=== PATIENT | female | born 1945 | race Caucasian/White ===

== ENCOUNTER 2017-05-20 08:47 | Outpatient (CLI) | payer OTHER ==
[~2017-05-20 08:47] MED LIST: ATENOLOL50 MG; COZAAR100 MG
== END 2017-05-20 08:56 | disposition home or self-care (01) ==
LOC: LAB 08:47
DX: E11.9 Type 2 diabetes mellitus without complications (principal); E78.2 Mixed hyperlipidemia; M81.0 Age-related osteoporosis without current pathological fracture; I10 Essential (primary) hypertension; E21.0 Primary hyperparathyroidism; E03.8 Other specified hypothyroidism; C34.12 Malignant neoplasm of upper lobe, left bronchus or lung; Z85.118 Personal history of other malignant neoplasm of bronchus and lung; C19 Malignant neoplasm of rectosigmoid junction; Z85.048 Personal history of other malignant neoplasm of rectum, rectosigmoid junction, and anus; D51.0 Vitamin B12 deficiency anemia due to intrinsic factor deficiency; D51.1 Vitamin B12 deficiency anemia due to selective vitamin B12 malabsorption with proteinuria; D51.3 Other dietary vitamin B12 deficiency anemia; D50.8 Other iron deficiency anemias; D51.8 Other vitamin B12 deficiency anemias; R97.0 Elevated carcinoembryonic antigen [CEA]

== ENCOUNTER 2017-07-08 08:46 | Outpatient (CLI) | payer OTHER | END 2017-07-08 08:53 | disposition home or self-care (01) | LOC: TOM 08:46 | DX: C34.12 Malignant neoplasm of upper lobe, left bronchus or lung (principal); Z85.118 Personal history of other malignant neoplasm of bronchus and lung; C19 Malignant neoplasm of rectosigmoid junction; Z85.048 Personal history of other malignant neoplasm of rectum, rectosigmoid junction, and anus; D51.0 Vitamin B12 deficiency anemia due to intrinsic factor deficiency; D51.1 Vitamin B12 deficiency anemia due to selective vitamin B12 malabsorption with proteinuria; D51.3 Other dietary vitamin B12 deficiency anemia; E03.8 Other specified hypothyroidism; I10 Essential (primary) hypertension | CPT/HCPCS: 71260; 74177; Q9965 ==

== ENCOUNTER 2017-07-13 08:43 | Outpatient (CLI) | payer OTHER | END 2017-07-13 08:53 | disposition home or self-care (01) | LOC: LAB 08:43 | DX: C34.12 Malignant neoplasm of upper lobe, left bronchus or lung (principal); Z85.118 Personal history of other malignant neoplasm of bronchus and lung; C19 Malignant neoplasm of rectosigmoid junction; Z85.048 Personal history of other malignant neoplasm of rectum, rectosigmoid junction, and anus; D51.0 Vitamin B12 deficiency anemia due to intrinsic factor deficiency; D51.1 Vitamin B12 deficiency anemia due to selective vitamin B12 malabsorption with proteinuria; D51.3 Other dietary vitamin B12 deficiency anemia; E03.8 Other specified hypothyroidism; D50.8 Other iron deficiency anemias; D51.8 Other vitamin B12 deficiency anemias; I10 Essential (primary) hypertension; R97.0 Elevated carcinoembryonic antigen [CEA]; E83.52 Hypercalcemia; E21.0 Primary hyperparathyroidism ==

== ENCOUNTER 2017-07-15 08:49 | Outpatient (CLI) | payer OTHER | END 2017-07-15 08:55 | disposition home or self-care (01) | LOC: MAMO-SONO 08:49 | DX: Z12.31 Encounter for screening mammogram for malignant neoplasm of breast (principal); Z87.898 Personal history of other specified conditions; N64.89 Other specified disorders of breast; C34.12 Malignant neoplasm of upper lobe, left bronchus or lung; Z85.118 Personal history of other malignant neoplasm of bronchus and lung; C19 Malignant neoplasm of rectosigmoid junction; Z85.048 Personal history of other malignant neoplasm of rectum, rectosigmoid junction, and anus; D51.0 Vitamin B12 deficiency anemia due to intrinsic factor deficiency; D51.1 Vitamin B12 deficiency anemia due to selective vitamin B12 malabsorption with proteinuria; D51.3 Other dietary vitamin B12 deficiency anemia; E03.8 Other specified hypothyroidism; I10 Essential (primary) hypertension ==

== ENCOUNTER 2017-10-14 14:14 | Outpatient (CLI) | payer OTHER | END 2017-10-14 14:30 | disposition home or self-care (01) | LOC: NUCLEAR 14:14 | DX: C34.12 Malignant neoplasm of upper lobe, left bronchus or lung (principal); Z85.118 Personal history of other malignant neoplasm of bronchus and lung; C19 Malignant neoplasm of rectosigmoid junction; Z85.048 Personal history of other malignant neoplasm of rectum, rectosigmoid junction, and anus; D51.0 Vitamin B12 deficiency anemia due to intrinsic factor deficiency; D51.1 Vitamin B12 deficiency anemia due to selective vitamin B12 malabsorption with proteinuria; E03.8 Other specified hypothyroidism; I10 Essential (primary) hypertension; E21.0 Primary hyperparathyroidism | CPT/HCPCS: 78072; A9500 ==

== ENCOUNTER 2017-10-22 08:10 | Outpatient (CLI) | payer OTHER | END 2017-10-22 08:21 | disposition home or self-care (01) | LOC: LAB 08:10 | DX: C34.12 Malignant neoplasm of upper lobe, left bronchus or lung (principal); Z85.118 Personal history of other malignant neoplasm of bronchus and lung; C19 Malignant neoplasm of rectosigmoid junction; Z85.048 Personal history of other malignant neoplasm of rectum, rectosigmoid junction, and anus; D51.0 Vitamin B12 deficiency anemia due to intrinsic factor deficiency; D51.1 Vitamin B12 deficiency anemia due to selective vitamin B12 malabsorption with proteinuria; D51.3 Other dietary vitamin B12 deficiency anemia; E03.8 Other specified hypothyroidism; I10 Essential (primary) hypertension; E21.0 Primary hyperparathyroidism; D50.8 Other iron deficiency anemias; D51.8 Other vitamin B12 deficiency anemias; R97.0 Elevated carcinoembryonic antigen [CEA] ==

== ENCOUNTER → 2018-02-23 09:44 | Outpatient (CLI) | payer OTHER | END | disposition home or self-care (01) | LOC: LAB 09:44 | DX: C34.12 Malignant neoplasm of upper lobe, left bronchus or lung (principal); Z85.118 Personal history of other malignant neoplasm of bronchus and lung; C19 Malignant neoplasm of rectosigmoid junction; Z85.048 Personal history of other malignant neoplasm of rectum, rectosigmoid junction, and anus; D51.0 Vitamin B12 deficiency anemia due to intrinsic factor deficiency; D51.1 Vitamin B12 deficiency anemia due to selective vitamin B12 malabsorption with proteinuria; E03.8 Other specified hypothyroidism; I10 Essential (primary) hypertension; E21.0 Primary hyperparathyroidism; D50.8 Other iron deficiency anemias; E78.2 Mixed hyperlipidemia; R97.0 Elevated carcinoembryonic antigen [CEA]; R97.8 Other abnormal tumor markers ==

== ENCOUNTER 2018-07-20 09:09 | Outpatient (CLI) | payer OTHER | END 2018-07-20 09:15 | disposition home or self-care (01) | LOC: MAMO-SONO 09:09 | DX: Z12.31 Encounter for screening mammogram for malignant neoplasm of breast (principal); Z87.898 Personal history of other specified conditions; N63.10 Unspecified lump in the right breast, unspecified quadrant; N63.20 Unspecified lump in the left breast, unspecified quadrant; C34.12 Malignant neoplasm of upper lobe, left bronchus or lung; C19 Malignant neoplasm of rectosigmoid junction; Z85.118 Personal history of other malignant neoplasm of bronchus and lung; Z85.048 Personal history of other malignant neoplasm of rectum, rectosigmoid junction, and anus; D51.0 Vitamin B12 deficiency anemia due to intrinsic factor deficiency; D51.1 Vitamin B12 deficiency anemia due to selective vitamin B12 malabsorption with proteinuria; D51.3 Other dietary vitamin B12 deficiency anemia; E03.8 Other specified hypothyroidism; I10 Essential (primary) hypertension; E21.0 Primary hyperparathyroidism ==

== ENCOUNTER 2018-07-20 10:13 | Outpatient (CLI) | payer OTHER | END 2018-07-20 10:24 | disposition home or self-care (01) | LOC: NUCLEAR 10:13 | DX: M81.0 Age-related osteoporosis without current pathological fracture (principal) ==

== ENCOUNTER 2018-07-21 07:30 | Outpatient (CLI) | payer OTHER | END 2018-07-21 07:52 | disposition home or self-care (01) | LOC: LAB 07:30 | DX: C34.12 Malignant neoplasm of upper lobe, left bronchus or lung (principal); Z85.118 Personal history of other malignant neoplasm of bronchus and lung; C19 Malignant neoplasm of rectosigmoid junction; Z85.048 Personal history of other malignant neoplasm of rectum, rectosigmoid junction, and anus; D51.0 Vitamin B12 deficiency anemia due to intrinsic factor deficiency; D51.1 Vitamin B12 deficiency anemia due to selective vitamin B12 malabsorption with proteinuria; D51.3 Other dietary vitamin B12 deficiency anemia; E03.8 Other specified hypothyroidism; I10 Essential (primary) hypertension; E21.0 Primary hyperparathyroidism; D50.8 Other iron deficiency anemias; D51.8 Other vitamin B12 deficiency anemias; K90.89 Other intestinal malabsorption; E78.2 Mixed hyperlipidemia; R97.0 Elevated carcinoembryonic antigen [CEA]; R19.5 Other fecal abnormalities ==

== ENCOUNTER 2018-08-11 08:20 | Outpatient (CLI) | payer OTHER | END 2018-08-11 08:30 | disposition home or self-care (01) | LOC: TOM 08:20 | DX: C34.12 Malignant neoplasm of upper lobe, left bronchus or lung (principal); Z85.118 Personal history of other malignant neoplasm of bronchus and lung; C19 Malignant neoplasm of rectosigmoid junction; Z85.048 Personal history of other malignant neoplasm of rectum, rectosigmoid junction, and anus; D51.0 Vitamin B12 deficiency anemia due to intrinsic factor deficiency; D51.1 Vitamin B12 deficiency anemia due to selective vitamin B12 malabsorption with proteinuria; D51.3 Other dietary vitamin B12 deficiency anemia; E03.8 Other specified hypothyroidism; I10 Essential (primary) hypertension; E21.0 Primary hyperparathyroidism ==

== ENCOUNTER 2018-12-08 08:41 | Outpatient (CLI) | payer OTHER | END 2018-12-08 08:49 | disposition home or self-care (01) | LOC: LAB 08:41 | DX: E03.8 Other specified hypothyroidism (principal); I10 Essential (primary) hypertension; E21.0 Primary hyperparathyroidism; C34.12 Malignant neoplasm of upper lobe, left bronchus or lung; Z85.118 Personal history of other malignant neoplasm of bronchus and lung; C19 Malignant neoplasm of rectosigmoid junction; Z85.048 Personal history of other malignant neoplasm of rectum, rectosigmoid junction, and anus; D51.0 Vitamin B12 deficiency anemia due to intrinsic factor deficiency; D51.1 Vitamin B12 deficiency anemia due to selective vitamin B12 malabsorption with proteinuria; D51.3 Other dietary vitamin B12 deficiency anemia ==

== ENCOUNTER → 2019-05-05 09:04 | Outpatient (CLI) | payer OTHER | END | disposition home or self-care (01) | LOC: LAB 09:04 | DX: C34.12 Malignant neoplasm of upper lobe, left bronchus or lung (principal); Z85.118 Personal history of other malignant neoplasm of bronchus and lung; C19 Malignant neoplasm of rectosigmoid junction; Z85.048 Personal history of other malignant neoplasm of rectum, rectosigmoid junction, and anus; D51.0 Vitamin B12 deficiency anemia due to intrinsic factor deficiency; D51.1 Vitamin B12 deficiency anemia due to selective vitamin B12 malabsorption with proteinuria; D51.3 Other dietary vitamin B12 deficiency anemia; E03.8 Other specified hypothyroidism; I10 Essential (primary) hypertension; E21.0 Primary hyperparathyroidism; E55.9 Vitamin D deficiency, unspecified; D50.0 Iron deficiency anemia secondary to blood loss (chronic); R97.0 Elevated carcinoembryonic antigen [CEA] ==

== ENCOUNTER 2020-01-18 08:46 | Outpatient (CLI) | payer OTHER | END 2020-01-18 08:51 | disposition home or self-care (01) | LOC: LAB 08:46 | PROVIDERS: ATTEND Internal Medicine Hematology & Oncology | DX: D50.8 Other iron deficiency anemias (principal); I10 Essential (primary) hypertension; D51.8 Other vitamin B12 deficiency anemias; E03.8 Other specified hypothyroidism; R97.0 Elevated carcinoembryonic antigen [CEA]; C34.12 Malignant neoplasm of upper lobe, left bronchus or lung; Z85.118 Personal history of other malignant neoplasm of bronchus and lung; C19 Malignant neoplasm of rectosigmoid junction; Z85.048 Personal history of other malignant neoplasm of rectum, rectosigmoid junction, and anus; D51.0 Vitamin B12 deficiency anemia due to intrinsic factor deficiency; D51.1 Vitamin B12 deficiency anemia due to selective vitamin B12 malabsorption with proteinuria; D51.3 Other dietary vitamin B12 deficiency anemia; E21.0 Primary hyperparathyroidism ==

== ENCOUNTER 2020-01-26 08:06 | Outpatient (CLI) | payer OTHER | END 2020-01-26 08:24 | disposition home or self-care (01) | LOC: RAD 08:06 | PROVIDERS: ATTEND Internal Medicine Hematology & Oncology | DX: C34.12 Malignant neoplasm of upper lobe, left bronchus or lung (principal); Z85.118 Personal history of other malignant neoplasm of bronchus and lung; C19 Malignant neoplasm of rectosigmoid junction; Z85.048 Personal history of other malignant neoplasm of rectum, rectosigmoid junction, and anus; D51.0 Vitamin B12 deficiency anemia due to intrinsic factor deficiency; D51.1 Vitamin B12 deficiency anemia due to selective vitamin B12 malabsorption with proteinuria; D51.3 Other dietary vitamin B12 deficiency anemia; E03.8 Other specified hypothyroidism; I10 Essential (primary) hypertension; E21.0 Primary hyperparathyroidism; N64.59 Other signs and symptoms in breast; Z12.31 Encounter for screening mammogram for malignant neoplasm of breast | CPT/HCPCS: 71260; 74177; 76641; 77067; Q9965 ==

== ENCOUNTER → 2020-09-24 08:13 | Outpatient (CLI) | payer OTHER | END | disposition home or self-care (01) | LOC: LAB 08:13 | PROVIDERS: ATTEND Internal Medicine Hematology & Oncology | DX: D50.8 Other iron deficiency anemias (principal); I10 Essential (primary) hypertension; R74.02 Elevation of levels of lactic acid dehydrogenase [LDH]; K76.89 Other specified diseases of liver; D51.8 Other vitamin B12 deficiency anemias; E55.9 Vitamin D deficiency, unspecified; E03.8 Other specified hypothyroidism; R97.0 Elevated carcinoembryonic antigen [CEA]; R97.8 Other abnormal tumor markers; C34.12 Malignant neoplasm of upper lobe, left bronchus or lung; Z85.118 Personal history of other malignant neoplasm of bronchus and lung; C19 Malignant neoplasm of rectosigmoid junction; Z85.048 Personal history of other malignant neoplasm of rectum, rectosigmoid junction, and anus; D51.0 Vitamin B12 deficiency anemia due to intrinsic factor deficiency; D51.1 Vitamin B12 deficiency anemia due to selective vitamin B12 malabsorption with proteinuria; D51.3 Other dietary vitamin B12 deficiency anemia; E21.0 Primary hyperparathyroidism ==

== ENCOUNTER → 2021-02-11 08:46 | Outpatient (CLI) | payer OTHER | END | disposition home or self-care (01) | LOC: LAB 08:46 | PROVIDERS: ATTEND Internal Medicine Hematology & Oncology | DX: D50.8 Other iron deficiency anemias (principal); I10 Essential (primary) hypertension; R74.02 Elevation of levels of lactic acid dehydrogenase [LDH]; K76.89 Other specified diseases of liver; D51.8 Other vitamin B12 deficiency anemias; E55.9 Vitamin D deficiency, unspecified; E03.8 Other specified hypothyroidism; R97.0 Elevated carcinoembryonic antigen [CEA]; R97.8 Other abnormal tumor markers; C34.12 Malignant neoplasm of upper lobe, left bronchus or lung; Z85.118 Personal history of other malignant neoplasm of bronchus and lung; C19 Malignant neoplasm of rectosigmoid junction; Z85.048 Personal history of other malignant neoplasm of rectum, rectosigmoid junction, and anus; D51.0 Vitamin B12 deficiency anemia due to intrinsic factor deficiency; D51.1 Vitamin B12 deficiency anemia due to selective vitamin B12 malabsorption with proteinuria; D51.3 Other dietary vitamin B12 deficiency anemia; E21.0 Primary hyperparathyroidism; E78.2 Mixed hyperlipidemia; K62.5 Hemorrhage of anus and rectum; N39.0 Urinary tract infection, site not specified ==

== ENCOUNTER → 2021-02-11 | Outpatient (CLI) | payer OTHER | END | disposition home or self-care (01) | LOC: MAMO-SONO 09:15 | PROVIDERS: ATTEND Family Medicine Adult Medicine | DX: R92.1 Mammographic calcification found on diagnostic imaging of breast (principal); Z12.31 Encounter for screening mammogram for malignant neoplasm of breast; Z80.8 Family history of malignant neoplasm of other organs or systems ==

== ENCOUNTER 2021-07-15 08:35 | Outpatient (CLI) | payer OTHER | END 2021-07-15 14:50 | disposition home or self-care (01) | LOC: LAB 08:35 | PROVIDERS: ATTEND Internal Medicine Hematology & Oncology | DX: D50.8 Other iron deficiency anemias (principal); I10 Essential (primary) hypertension; R74.02 Elevation of levels of lactic acid dehydrogenase [LDH]; K76.89 Other specified diseases of liver; E78.2 Mixed hyperlipidemia; E03.8 Other specified hypothyroidism; R97.0 Elevated carcinoembryonic antigen [CEA]; R97.8 Other abnormal tumor markers; C34.12 Malignant neoplasm of upper lobe, left bronchus or lung; Z85.118 Personal history of other malignant neoplasm of bronchus and lung; C19 Malignant neoplasm of rectosigmoid junction; D52.0 Dietary folate deficiency anemia; D51.1 Vitamin B12 deficiency anemia due to selective vitamin B12 malabsorption with proteinuria; D51.3 Other dietary vitamin B12 deficiency anemia; E21.0 Primary hyperparathyroidism; Z85.048 Personal history of other malignant neoplasm of rectum, rectosigmoid junction, and anus ==

== ENCOUNTER 2021-08-06 10:45 | Outpatient (CLI) | payer OTHER | END 2021-08-06 10:47 | disposition home or self-care (01) | LOC: SONOGRAMA 10:45 | PROVIDERS: ATTEND Internal Medicine Hematology & Oncology | DX: Z85.118 Personal history of other malignant neoplasm of bronchus and lung (principal); Z85.048 Personal history of other malignant neoplasm of rectum, rectosigmoid junction, and anus; C34.12 Malignant neoplasm of upper lobe, left bronchus or lung; C19 Malignant neoplasm of rectosigmoid junction; D51.0 Vitamin B12 deficiency anemia due to intrinsic factor deficiency; D51.1 Vitamin B12 deficiency anemia due to selective vitamin B12 malabsorption with proteinuria; D51.3 Other dietary vitamin B12 deficiency anemia; E03.8 Other specified hypothyroidism; I10 Essential (primary) hypertension; E21.0 Primary hyperparathyroidism ==

== ENCOUNTER 2022-01-16 08:31 | Outpatient (CLI) | payer OTHER | END 2022-01-16 08:32 | disposition home or self-care (01) | LOC: LAB 08:31 | PROVIDERS: ATTEND Internal Medicine Hematology & Oncology | DX: C34.12 Malignant neoplasm of upper lobe, left bronchus or lung (principal); C19 Malignant neoplasm of rectosigmoid junction; D50.8 Other iron deficiency anemias; I10 Essential (primary) hypertension; R74.02 Elevation of levels of lactic acid dehydrogenase [LDH]; K76.89 Other specified diseases of liver; E55.9 Vitamin D deficiency, unspecified; E78.2 Mixed hyperlipidemia; E03.8 Other specified hypothyroidism; R97.0 Elevated carcinoembryonic antigen [CEA]; R97.8 Other abnormal tumor markers; D51.0 Vitamin B12 deficiency anemia due to intrinsic factor deficiency; D51.1 Vitamin B12 deficiency anemia due to selective vitamin B12 malabsorption with proteinuria; D51.3 Other dietary vitamin B12 deficiency anemia; E21.0 Primary hyperparathyroidism; Z85.118 Personal history of other malignant neoplasm of bronchus and lung ==

== ENCOUNTER 2022-07-07 08:27 | Outpatient (CLI) | payer OTHER | END 2022-07-07 15:50 | disposition home or self-care (01) | LOC: LAB 08:27 | PROVIDERS: ATTEND Internal Medicine Hematology & Oncology | DX: E78.2 Mixed hyperlipidemia (principal); I11.9 Hypertensive heart disease without heart failure; R73.01 Impaired fasting glucose; E03.8 Other specified hypothyroidism; E21.0 Primary hyperparathyroidism; E55.9 Vitamin D deficiency, unspecified; I12.9 Hypertensive chronic kidney disease with stage 1 through stage 4 chronic kidney disease, or unspecified chronic kidney disease; D50.8 Other iron deficiency anemias; R74.02 Elevation of levels of lactic acid dehydrogenase [LDH]; K76.89 Other specified diseases of liver; C50.919 Malignant neoplasm of unspecified site of unspecified female breast; R97.8 Other abnormal tumor markers; R97.0 Elevated carcinoembryonic antigen [CEA]; C34.12 Malignant neoplasm of upper lobe, left bronchus or lung; Z85.118 Personal history of other malignant neoplasm of bronchus and lung; D51.1 Vitamin B12 deficiency anemia due to selective vitamin B12 malabsorption with proteinuria; D51.3 Other dietary vitamin B12 deficiency anemia; G47.00 Insomnia, unspecified; F51.09 Other insomnia not due to a substance or known physiological condition ==

== ENCOUNTER 2022-07-07 10:04 | Outpatient (CLI) | payer OTHER | END 2022-07-07 10:07 | disposition home or self-care (01) | LOC: MAMO-SONO 10:04 | PROVIDERS: ATTEND Internal Medicine Hematology & Oncology | DX: Z12.31 Encounter for screening mammogram for malignant neoplasm of breast (principal); N63.0 Unspecified lump in unspecified breast; N64.4 Mastodynia; C34.12 Malignant neoplasm of upper lobe, left bronchus or lung; Z85.118 Personal history of other malignant neoplasm of bronchus and lung; C19 Malignant neoplasm of rectosigmoid junction; Z85.048 Personal history of other malignant neoplasm of rectum, rectosigmoid junction, and anus; D51.0 Vitamin B12 deficiency anemia due to intrinsic factor deficiency; D51.1 Vitamin B12 deficiency anemia due to selective vitamin B12 malabsorption with proteinuria; D51.3 Other dietary vitamin B12 deficiency anemia; E03.8 Other specified hypothyroidism; I10 Essential (primary) hypertension; E21.0 Primary hyperparathyroidism; G47.00 Insomnia, unspecified; F51.09 Other insomnia not due to a substance or known physiological condition ==

== ENCOUNTER 2022-07-24 12:19 | Outpatient (CLI) | payer OTHER | END 2022-07-24 12:21 | disposition home or self-care (01) | LOC: NUCLEAR 12:19 | PROVIDERS: ATTEND Family Medicine Adult Medicine | DX: M81.0 Age-related osteoporosis without current pathological fracture (principal) ==

== ENCOUNTER 2022-07-30 10:26 | Outpatient (CLI) | payer OTHER | END 2022-07-30 13:25 | disposition home or self-care (01) | LOC: LAB 10:26 | DX: E03.8 Other specified hypothyroidism (principal) ==

== ENCOUNTER 2022-08-19 07:55 | Emergency (ER) | payer OTHER ==
[~2022-08-19] VITALS: Ht 152.4 cm; Wt 58.1 kg
[2022-08-19] MEDS ORDERED: LIPITOR20 MG PO (08:23)
[2022-08-19] MEDS ORDERED: AMBIEN10 MG PO (08:23)
[2022-08-19] MEDS ORDERED: LEVOTHYROXINE25 MC2 PO (08:24)
== END 2022-08-19 12:32 | disposition home or self-care (01) ==
LOC: ER 07:55
DX: M54.50 Low back pain, unspecified (principal); Z85.89 Personal history of malignant neoplasm of other organs and systems; I10 Essential (primary) hypertension; E03.9 Hypothyroidism, unspecified; Z88.0 Allergy status to penicillin; Z88.2 Allergy status to sulfonamides; K59.00 Constipation, unspecified

== ENCOUNTER 2023-02-13 08:01 | Outpatient (CLI) | payer OTHER ==
[~2023-02-13 08:01] MED LIST changes: +AMBIEN10 MG PO; +LEVOTHYROXINE25 MC2 PO; +LIPITOR20 MG PO
[2023-02-13 10:20] LABS: HEMATOCRIT 33.2 % (36.0-45.00); HEMOGLOBIN 11.2 g/dL (12.0-15.00); MEAN CELL VOLUME 88.6 fL (80.00-100.00); MEAN CORPUSCULAR HEMOGLOBIN 29.9 pg (27.00-32.0); MEAN CORPUSCULAR HGB CONC 33.8 g/dl (32.0-36.0); PLATELET COUNT 252 K/uL (150-450); RED BLOOD COUNT 3.74 M/uL (4.00-6.00); RED CELL DISTRIBUTION WIDTH 14.3 % (11.5-14.5)
[2023-02-13 11:19] LABS: ALBUMIN 3.4 gm/dL (3.4-5.0); BILIRUBIN TOTAL 0.61 mg/dL (0.3-1.2); CALCIUM 8.7 mg/dL (8.5-10.1); CREATININE SERUM 1.27 mg/dL (0.55-1.02); GFR 40.7; GLOBULINA 3.9 G/DL (2.4-3.5); POTASSIUM 4.61 mEq/L (3.5-5.1); TOTAL PROTEIN 7.3 gm/dL (6.4-8.2); TSH 4.4 uIU/mL (0.358-3.74)
== END 2023-02-13 08:33 | disposition home or self-care (01) ==
LOC: LAB 08:01
DX: R73.01 Impaired fasting glucose (principal); E78.2 Mixed hyperlipidemia; K62.5 Hemorrhage of anus and rectum; E03.9 Hypothyroidism, unspecified; E55.9 Vitamin D deficiency, unspecified; E21.0 Primary hyperparathyroidism; Z88.0 Allergy status to penicillin; Z88.1 Allergy status to other antibiotic agents

== ENCOUNTER 2023-02-26 11:11 | Outpatient (CLI) | payer OTHER ==
[2023-02-26 12:32] LABS: ob NEGATIVE (NEGATIVE)
== END 2023-02-26 11:12 | disposition home or self-care (01) ==
LOC: EDBD 11:11 → LAB 11:11
DX: K62.5 Hemorrhage of anus and rectum (principal)

== ENCOUNTER → 2023-07-01 07:15 | Outpatient (CLI) | payer OTHER | END | disposition home or self-care (01) | LOC: NUCLEAR 07:00 | PROVIDERS: ATTEND Internal Medicine Hematology & Oncology | DX: D35.1 Benign neoplasm of parathyroid gland (principal); E21.0 Primary hyperparathyroidism; C34.12 Malignant neoplasm of upper lobe, left bronchus or lung; Z85.118 Personal history of other malignant neoplasm of bronchus and lung; C19 Malignant neoplasm of rectosigmoid junction; Z85.048 Personal history of other malignant neoplasm of rectum, rectosigmoid junction, and anus; D51.0 Vitamin B12 deficiency anemia due to intrinsic factor deficiency; D51.1 Vitamin B12 deficiency anemia due to selective vitamin B12 malabsorption with proteinuria; D51.3 Other dietary vitamin B12 deficiency anemia; E03.8 Other specified hypothyroidism; I10 Essential (primary) hypertension | CPT/HCPCS: 78072; A9500 ==

== ENCOUNTER 2023-07-21 08:57 | Outpatient (CLI) | payer OTHER ==
[2023-07-21 10:28] LABS: HEMATOCRIT 35.7 % (36.0-45.00); HEMOGLOBIN 12.1 g/dL (12.0-15.00); MEAN CELL VOLUME 88.7 fL (80.00-100.00); MEAN CORPUSCULAR HEMOGLOBIN 30.1 pg (27.00-32.0); PLATELET COUNT 272 K/uL (150-450); RED BLOOD COUNT 4.03 M/uL (4.00-6.00)
[2023-07-21 11:30] LABS: ALBUMIN 3.5 gm/dL (3.4-5.0); BILIRUBIN TOTAL 0.72 mg/dL (0.3-1.2); CALCIUM 9.3 mg/dL (8.5-10.1); CREATININE SERUM 1.19 mg/dL (0.55-1.02); GFR 43.76; POTASSIUM 4.5 mEq/L (3.5-5.1); T4 FREE 1.36 NG/ML (0.76-1.46); TOTAL PROTEIN 7.5 gm/dL (6.4-8.2); TSH 1.9 uIU/mL (0.358-3.74)
[2023-07-21 12:36] LABS: FOLIC ACID 19.22 ng/ml (4.78-20); VITAMIN D3 25 HYDROXY 49.55 ng/ml (30-120)
== END 2023-07-21 09:04 | disposition home or self-care (01) ==
LOC: LAB 08:57
PROVIDERS: ATTEND Internal Medicine Hematology & Oncology
DX: D50.8 Other iron deficiency anemias (principal); I10 Essential (primary) hypertension; R74.02 Elevation of levels of lactic acid dehydrogenase [LDH]; K76.89 Other specified diseases of liver; E55.9 Vitamin D deficiency, unspecified; C50.919 Malignant neoplasm of unspecified site of unspecified female breast; R97.8 Other abnormal tumor markers; E03.8 Other specified hypothyroidism; E21.0 Primary hyperparathyroidism; D53.1 Other megaloblastic anemias, not elsewhere classified; C34.12 Malignant neoplasm of upper lobe, left bronchus or lung; Z85.048 Personal history of other malignant neoplasm of rectum, rectosigmoid junction, and anus; D51.0 Vitamin B12 deficiency anemia due to intrinsic factor deficiency; D51.1 Vitamin B12 deficiency anemia due to selective vitamin B12 malabsorption with proteinuria; D51.3 Other dietary vitamin B12 deficiency anemia; G47.00 Insomnia, unspecified; F51.09 Other insomnia not due to a substance or known physiological condition

== ENCOUNTER → 2023-11-20 08:12 | Outpatient (CLI) | payer OTHER ==
[2023-11-20 08:50] LABS: HEMATOCRIT 35.2 % (36.0-45.00); HEMOGLOBIN 11.9 g/dL (12.0-15.00); MEAN CELL VOLUME 89.8 fL (80.00-100.00); MEAN CORPUSCULAR HEMOGLOBIN 30.4 pg (27.00-32.0); MEAN CORPUSCULAR HGB CONC 33.9 g/dl (32.0-36.0); PLATELET COUNT 273 K/uL (150-450); RED BLOOD COUNT 3.92 M/uL (4.00-6.00); RED CELL DISTRIBUTION WIDTH 13.3 % (11.5-14.5)
[2023-11-20 09:42] LABS: ALBUMIN 3.7 gm/dL (3.4-5.0); BILIRUBIN TOTAL 0.69 mg/dL (0.3-1.2); CREATININE SERUM 1.1 mg/dL (0.55-1.02); GFR 47.91; GLOBULINA 3.7 G/DL (2.4-3.5); POTASSIUM 4.48 mEq/L (3.5-5.1); T4 FREE 1.18 NG/ML (0.76-1.46); TOTAL PROTEIN 7.4 gm/dL (6.4-8.2); TSH 2.62 uIU/mL (0.358-3.74)
[2023-11-21 09:10] LABS: CA 125 17.3 U/mL (0.0-38.1); CA 15-3 14.3 U/mL (0.0-25.0)
== END | disposition home or self-care (01) ==
LOC: LAB 08:12
PROVIDERS: ATTEND Internal Medicine Hematology & Oncology
DX: C19 Malignant neoplasm of rectosigmoid junction (principal); Z85.118 Personal history of other malignant neoplasm of bronchus and lung; Z85.048 Personal history of other malignant neoplasm of rectum, rectosigmoid junction, and anus; D51.0 Vitamin B12 deficiency anemia due to intrinsic factor deficiency; D51.1 Vitamin B12 deficiency anemia due to selective vitamin B12 malabsorption with proteinuria; D51.3 Other dietary vitamin B12 deficiency anemia; E03.8 Other specified hypothyroidism; I10 Essential (primary) hypertension; E21.0 Primary hyperparathyroidism; G47.00 Insomnia, unspecified; D35.1 Benign neoplasm of parathyroid gland; D50.8 Other iron deficiency anemias; R74.02 Elevation of levels of lactic acid dehydrogenase [LDH]; K76.89 Other specified diseases of liver; C50.919 Malignant neoplasm of unspecified site of unspecified female breast; R97.8 Other abnormal tumor markers; C25.9 Malignant neoplasm of pancreas, unspecified

== ENCOUNTER 2023-11-20 08:37 | Outpatient (CLI) | payer OTHER | END 2023-11-20 08:38 | disposition home or self-care (01) | LOC: MAMO-SONO 08:37 | PROVIDERS: ATTEND Internal Medicine Hematology & Oncology | DX: C34.12 Malignant neoplasm of upper lobe, left bronchus or lung (principal); C19 Malignant neoplasm of rectosigmoid junction; N63.0 Unspecified lump in unspecified breast; N64.4 Mastodynia; Z85.048 Personal history of other malignant neoplasm of rectum, rectosigmoid junction, and anus; D51.0 Vitamin B12 deficiency anemia due to intrinsic factor deficiency; D51.1 Vitamin B12 deficiency anemia due to selective vitamin B12 malabsorption with proteinuria; E03.8 Other specified hypothyroidism; I10 Essential (primary) hypertension; E21.0 Primary hyperparathyroidism; G47.00 Insomnia, unspecified; F51.09 Other insomnia not due to a substance or known physiological condition; D35.1 Benign neoplasm of parathyroid gland; Z12.31 Encounter for screening mammogram for malignant neoplasm of breast ==

== ENCOUNTER 2023-12-03 07:39 | Outpatient (CLI) | payer OTHER | END 2023-12-03 07:40 | disposition home or self-care (01) | LOC: NUCLEAR 07:39 | PROVIDERS: ATTEND Internal Medicine Hematology & Oncology | DX: C34.12 Malignant neoplasm of upper lobe, left bronchus or lung (principal); C19 Malignant neoplasm of rectosigmoid junction | CPT/HCPCS: 78816; A9552 ==

== ENCOUNTER → 2024-06-13 08:09 | Outpatient (CLI) | payer OTHER ==
[2024-06-13 08:52] LABS: HEMATOCRIT 36.1 % (36.0-45.00); HEMOGLOBIN 12.1 g/dL (12.0-15.00); MEAN CELL VOLUME 90.6 fL (80.00-100.00); MEAN CORPUSCULAR HEMOGLOBIN 30.4 pg (27.00-32.0); MEAN CORPUSCULAR HGB CONC 33.6 g/dl (32.0-36.0); PLATELET COUNT 275 K/uL (150-450); RED BLOOD COUNT 3.99 M/uL (4.00-6.00); RED CELL DISTRIBUTION WIDTH 13.9 % (11.5-14.5)
== END | disposition home or self-care (01) ==
LOC: LAB 08:09
DX: K21.9 Gastro-esophageal reflux disease without esophagitis (principal); E03.8 Other specified hypothyroidism

== ENCOUNTER → 2024-09-09 07:50 | Outpatient (CLI) | payer OTHER ==
[2024-09-09 09:54] LABS: HEMATOCRIT 35.7 % (36.0-45.00); HEMOGLOBIN 12.1 g/dL (12.0-15.00); MEAN CORPUSCULAR HEMOGLOBIN 29.8 pg (27.00-32.0); MEAN CORPUSCULAR HGB CONC 33.9 g/dl (32.0-36.0); PLATELET COUNT 284 K/uL (150-450); RED BLOOD COUNT 4.06 M/uL (4.00-6.00); RED CELL DISTRIBUTION WIDTH 13.9 % (11.5-14.5)
[2024-09-09 11:31] LABS: ALBUMIN 3.3 gm/dL (3.4-5.0); BILIRUBIN TOTAL 0.62 mg/dL (0.3-1.2); CALCIUM 8.9 mg/dL (8.5-10.1); CREATININE SERUM 1.13 mg/dL (0.55-1.02); GFR 46.33; POTASSIUM 4.74 mEq/L (3.5-5.1); T4 FREE 1.36 NG/ML (0.76-1.46); TOTAL PROTEIN 7.3 gm/dL (6.4-8.2)
[2024-09-09 11:33] LABS: TSH 0.201 uIU/mL (0.358-3.74)
[2024-09-11 09:08] LABS: CA 125 17.6 U/mL (0.0-38.1); CA 15-3 14.7 U/mL (0.0-25.0)
== END | disposition home or self-care (01) ==
LOC: LAB 07:50
PROVIDERS: ATTEND Internal Medicine Hematology & Oncology
DX: C34.12 Malignant neoplasm of upper lobe, left bronchus or lung (principal); Z85.118 Personal history of other malignant neoplasm of bronchus and lung; C19 Malignant neoplasm of rectosigmoid junction; Z85.048 Personal history of other malignant neoplasm of rectum, rectosigmoid junction, and anus; D51.0 Vitamin B12 deficiency anemia due to intrinsic factor deficiency; D51.1 Vitamin B12 deficiency anemia due to selective vitamin B12 malabsorption with proteinuria; D51.3 Other dietary vitamin B12 deficiency anemia; E03.8 Other specified hypothyroidism; I10 Essential (primary) hypertension; E21.0 Primary hyperparathyroidism; G47.00 Insomnia, unspecified; F51.09 Other insomnia not due to a substance or known physiological condition; D35.1 Benign neoplasm of parathyroid gland; D50.8 Other iron deficiency anemias; R74.02 Elevation of levels of lactic acid dehydrogenase [LDH]; K76.89 Other specified diseases of liver; C50.919 Malignant neoplasm of unspecified site of unspecified female breast; R97.8 Other abnormal tumor markers; R97.0 Elevated carcinoembryonic antigen [CEA]; R97.1 Elevated cancer antigen 125 [CA 125]; C25.9 Malignant neoplasm of pancreas, unspecified; C56.9 Malignant neoplasm of unspecified ovary

== ENCOUNTER 2024-10-24 07:55 | Outpatient (CLI) | payer OTHER ==
[2024-10-24 09:02] LABS: BASO % 0.9 % (0.1-1.2); EOS # 0.13 (0.04-0.54); EOS % 2.3 % (0.7-7.0); HEMATOCRIT 35.8 % (34.1-44.9); HEMOGLOBIN 11.6 g/dL (11.2-15.7); LYMPH # 1.91 (1.18-3.74); LYMPH % 34.1 % (19.3-53.1); MEAN CORPUSCULAR HEMOGLOBIN 29.2 pg (25.6-32.2); MONO # 0.54 (0.24-0.82); MONO % 9.6 % (4.7-12.5); NEUT # 2.96 (1.56-6.13); NEUT % 52.9 % (34.0-71.1); PLATELET COUNT 280 K/uL (163-369); RED BLOOD COUNT 3.97 M/uL (3.93-5.22); RED CELL DISTRIBUTION WIDTH 13.2 % (11.6-14.4)
[2024-10-24 09:37] LABS: ALBUMIN 3.5 gm/dL (3.4-5.0); BILIRUBIN TOTAL 0.68 mg/dL (0.3-1.2); CALCIUM 8.9 mg/dL (8.5-10.1); CHOL HDL RATIO 2.4 (0-5.0); CREATININE SERUM 1.1 mg/dL (0.55-1.02); FREE TRIODOTIRONINE 2.11 pg/ml (2.18-3.98); GFR 47.79; GLOBULINA 3.5 G/DL (2.4-3.5); POTASSIUM 3.97 mEq/L (3.5-5.1); T4 FREE 1.11 NG/ML (0.76-1.46); TSH 1.78 uIU/mL (0.358-3.74)
[2024-10-25 09:08] LABS: CA 125 15.3 U/mL (0.0-38.1); CA 15-3 12.1 U/mL (0.0-25.0)
== END 2024-10-24 08:03 | disposition home or self-care (01) ==
LOC: LAB 07:55
PROVIDERS: ATTEND Internal Medicine Hematology & Oncology
DX: C34.12 Malignant neoplasm of upper lobe, left bronchus or lung (principal); Z85.118 Personal history of other malignant neoplasm of bronchus and lung; C19 Malignant neoplasm of rectosigmoid junction; Z85.048 Personal history of other malignant neoplasm of rectum, rectosigmoid junction, and anus; D51.0 Vitamin B12 deficiency anemia due to intrinsic factor deficiency; D51.3 Other dietary vitamin B12 deficiency anemia; E03.8 Other specified hypothyroidism; I10 Essential (primary) hypertension; E21.0 Primary hyperparathyroidism; G47.00 Insomnia, unspecified; F51.09 Other insomnia not due to a substance or known physiological condition; D35.1 Benign neoplasm of parathyroid gland; Z15.01 Genetic susceptibility to malignant neoplasm of breast; Z15.09 Genetic susceptibility to other malignant neoplasm; D50.8 Other iron deficiency anemias; R74.02 Elevation of levels of lactic acid dehydrogenase [LDH]; K76.89 Other specified diseases of liver; R97.8 Other abnormal tumor markers; R97.0 Elevated carcinoembryonic antigen [CEA]; E03.9 Hypothyroidism, unspecified; E78.2 Mixed hyperlipidemia; I13.10 Hypertensive heart and chronic kidney disease without heart failure, with stage 1 through stage 4 chronic kidney disease, or unspecified chronic kidney disease; R80.9 Proteinuria, unspecified; I70.0 Atherosclerosis of aorta; E55.9 Vitamin D deficiency, unspecified; E11.69 Type 2 diabetes mellitus with other specified complication; R30.0 Dysuria

== ENCOUNTER → 2024-10-28 09:32 | Outpatient (CLI) | payer OTHER | END | disposition home or self-care (01) | LOC: NUCLEAR 09:32 | PROVIDERS: ATTEND General Practice | DX: M81.0 Age-related osteoporosis without current pathological fracture (principal) ==

== ENCOUNTER → 2024-11-11 07:29 | Outpatient (CLI) | payer OTHER | END | disposition home or self-care (01) | LOC: NUCLEAR 07:29 | PROVIDERS: ATTEND Internal Medicine Hematology & Oncology | DX: C34.12 Malignant neoplasm of upper lobe, left bronchus or lung (principal); C19 Malignant neoplasm of rectosigmoid junction | CPT/HCPCS: 78816; A9552 ==